=== PATIENT | male | born 1995 | race Caucasian/White ===

== ENCOUNTER 2022-12-26 04:16 | Day surgery (SDC) | payer OTHER ==
[2022-12-21 14:28] VITALS: BMI 24.9
[2022-12-26] MEDS ORDERED: BUPIVACAINE HCL/PF 0.5% (5MG/ML) 10 ML VIAL ONE (11:15)
[2022-12-26] MEDS ORDERED: LIDOCAINE HCL 1%, 10 MG/ML (20ML VIAL) ONE (11:15)
[2022-12-26] MEDS ORDERED: BACITRACIN ZINC 15 GM TUBE TOPICAL OINTMENT ONE (11:17)
[2022-12-26] MEDS ORDERED: ceFAZolin 2 GRAM PREMIX BAG IVPB ONE (11:54)
[2022-12-26] MEDS ORDERED: LIDOCAINE HCL 1%, 10 MG/ML (20ML VIAL) NR ONE (12:05)
[2022-12-26] MEDS ORDERED: BUPIVACAINE HCL/PF 0.5% (5MG/ML) 10 ML VIAL IJ ONE (12:05)
[2022-12-26] MEDS ORDERED: ACETAMINOPHEN INJECTION 100 ML IVPB ONE (12:37)
[2022-12-26] MEDS ORDERED: oxyCODONE HCL 5 MG TABLET PO PRN (14:01)
[2022-12-26] MEDS ORDERED: ONDANSETRON 4 MG/2 ML VIAL IVPUSH PRN (14:01)
[2022-12-26] MEDS ORDERED: LACTATED RINGERS SOLUTION 1,000 ML IV SCH (14:15)
[2022-12-26 15:53] VITALS: TEMP 97.2
[2022-12-26 17:14] VITALS: BP 118/68; PULSE 80; RESP 18
== END 2022-12-26 16:15 | disposition home or self-care (01) ==
LOC: JASU-SURG 04:16
PROVIDERS: ATTEND Urology
PROC: 0VTTXZZ Resection of Prepuce, External Approach (ICD-10-PCS; principal; 2022-12-26 12:00)
PROC: 0VTTXZZ Resection of Prepuce, External Approach (ICD-10-PCS; 2022-12-26 12:00)
DX: N48.0 Leukoplakia of penis (principal); N47.1 Phimosis; N48.89 Other specified disorders of penis
CPT/HCPCS: 94760